=== PATIENT | female | born 1995 | race Caucasian/White ===

== ENCOUNTER 2024-05-29 10:29 | Emergency (ER) | payer OTHER, SELFPAY ==
[2024-05-29 10:35] VITALS: BP 150/77; PULSE 74; RESP 18; TEMP 36.9; O2SAT 100; BMI 20.6
--- NOTE | 2024-05-29 10:56 | ED.GENADULT ---
HPI - General Adult General Chief complaint: Flank Pain Stated complaint: Lower back pain since 1am, throwing up Time Seen by Provider: 05/29/24 10:56 History of Present Illness HPI narrative: Woke up with back pain and nausea around 1am this morning. Has had urinary frequency, with dysuria. Has been nauseous and vomiting. Was sent here from 28-year-old woman presenting to the emergency department after initially being seen in urgent care. We were contacted by them following initial evaluation. 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 Evaluation in urgent care shows normal white count and urinalysis most notable for ketones and negative test. Has not had any fever. No hematuria. No prior pain like this. Does not typically suffer from back pain. No particular food intolerance is and no family history of kidney stones or gallbladder disease that she is aware of. Seems to exacerbate a little bit with flexion of the right thigh. Per their conversation with urgent care provider, they are here with expectation of imaging. Related Data Previous Rx's ?Medication ?Instructions ?Recorded hydrocodone 5 mg-acetaminophen 325 1 - 2 tab PO Q4-6H PRN pain #12 05/29/24 mg tablet tabs ondansetron 4 mg disintegrating 4 mg PO Q4-6H PRN nausea and 05/29/24 tablet vomiting #10 tabs tamsulosin 0.4 mg capsule (Flomax) 0.4 mg PO DAILY #15 caps 05/29/24 Allergies Allergy/AdvReac Type Severity Reaction Status Date / Time No Known Drug Allergies Allergy Verified 05/29/24 10:39 Review of Systems Status of ROS: Reports: 6 or more systems reviewed and unremarkable except as noted in History and below PFSH [facility] Social History Do you use any of these nicotine containing products: None Second hand tobacco smoke exposure: No How often do you have a drink containing alcohol: never How often do you have six or more drinks on one occasion: Never AUDIT-C Alcohol total score: 0 Non-prescribed substance use: denies use service: No Exam Narrative: Exam Narrative: Pleasant. Calm. Appears mildly uncomfortable though not demonstrating. Breathing easily. Skin is warm and dry without apparent rash. She is well-perfused. No lower extremity edema. Lungs are clear. Heart is in a regular rate and rhythm. Abdomen is flat soft and nontender. Area of pain seems to be in the james spinal musculature of the upper lumbar low thoracic spine. Not clearly reproducible. No swellings here. No SI joint area pain. Const: Vital Signs, click to edit/add: Vital Signs - 24 hr 05/29/24 10:35 Temperature 98.4 F Pulse Rate [Right Pulse Oximeter] 74 Respiratory Rate 18 Blood Pressure [Ri ght Upper Arm] 150/77 H Pulse Oximetry 100 Oxygen Delivery Me thod Room Air Documenting provider has reviewed patient's vital signs: yes Course Vital Signs Vital signs: Initial Vital Signs Temperature 98.4 F 05/29/24 10:35 Temperature Source Temporal Artery Scan 05/29/24 10:35 Pulse Rate 74 05/29/24 10:35 Pulse Rhythm Regular 05/29/24 10:35 Respiratory Rate 18 05/29/24 10:35 Blood Pressure 150/77 H 05/29/24 10:35 Blood Pressure Mean 101 05/29/24 10:35 Blood Pressure Position Sitting 05/29/24 10:35 Pulse Oximetry 100 05/29/24 10:35 Oxygen Delivery Method Room Air 05/29/24 10:35 Vital Signs Temperature 98.4 F 05/29/24 10:35 Pulse Rate 74 05/29/24 10:35 Respiratory Rate 18 05/29/24 10:35 Blood Pressure 150/77 H 05/29/24 10:35 Pulse Oximetry 100 05/29/24 10:35 Oxygen Delivery Method Room Air 05/29/24 10:35 Temperature 98.4 F 05/29/24 10:35 Pulse Rate 74 05/29/24 10:35 Respiratory Rate 18 05/29/24 10:35 Blood Pressure 150/77 H 05/29/24 10:35 Pulse Oximetry 100 05/29/24 10:35 Oxygen Delivery Method Room Air 05/29/24 10:35 Medications Administered Medications: Discontinued Medications Generic Name Dose Route Start Last Admin Trade Name Freq PRN Reason Stop Dose Admin Sodium Chloride 1,000 mls @ 1,000 mls/hr 05/29/24 11:09 05/29/24 13:35 0.9 % Sodium Chloride 1000 Ml IV 05/29/24 12:08 Infused .Q1H ONE Infusion Ketorolac Tromethamine 30 mg 05/29/24 12:07 05/29/24 12:28 Ketorolac 30 Mg/Ml Inj IVP 05/29/24 12:08 30 mg ONCE ONE Administration Morphine Sulfate 4 mg 05/29/24 13:53 05/29/24 14:05 Morphine 4 Mg/Ml Inj IVP 05/29/24 13:54 4 mg ONCE ONE Administration Medical Decision Making MDM Narrative Medical decision making narrative: Unusual abrupt presentation for intra-abdominal/spinal abscess. She is not complaining of a headache to suggest meningitis. Possibly could be referred biliary colic. Unusual for appendicitis. Not area of pain that would associated with ovarian cyst rupture and regarding ectopic - head negative urine test today. Urinalysis without significant blood but with evidence of dehydration/metabolic stress. Abrupt onset could be cystitis/UTI or ureteral colic secondary to stone. Placing IV. Hydrating in anticipation of potential imaging. Checking labs for evidence of liver/biliary inflammation - this may direct imaging further. Initially she does not feel that she needs anything for pain or nausea. Basic and liver panel are unremarkable. Arranging for contrasted CT imaging of abdomen and pelvis probably given slim body habitus. Also she would like something for discomfort and of ordered ketorolac. On my review CT imaging does seem to show a low right small calcification See radiology over-read as below CT abdomen and pelvis acquired with 100 cc Omnipaque 350 IV contrast. COMPARISON: None. FINDINGS: Lower chest: Scattered atelectasis. Liver: Unremarkable. Normal in size and attenuation. No suspicious masses. Gallbladder and bile ducts: Unremarkable. No stones or inflammation. No biliary dilatation. Pancreas: Unremarkable. No mass or inflammation. Spleen: Unremarkable. Normal in size. No masses. Adrenal glands: Unremarkable. No nodules. Kidneys: Mild right hydroureteronephrosis secondary to punctate obstructing right UVJ stone. GI tract: Mild colonic stool burden. Normal in caliber. No sign of mass or inflammation. Normal appendix. Vasculature: Abdominal aorta is normal in caliber. Mesenteric arteries are patent. Lymph nodes: No lymphadenopathy. Peritoneum/Abdominal Wall: Unremarkable. No sign of mass or infiltration. No free air or significant free fluid. Pelvis: Trace free fluid in the pelvis. Bones: Unremarkable for age. IMPRESSION: Mild right hydroureteronephrosis secondary to punctate obstructing right UVJ stone. With escalation in pain given some IV morphine. Overall improved. Labs show good renal function See patient discharge plan for further discussion Medical Records Medical records reviewed: Yes I reviewed the patient's medical records Lab Data Lab results reviewed: Yes I reviewed the patient's lab results Labs: Lab Results 05/29/24 Range/Units 11:28 Sodium 137 (135-149) mmol/L Potassium 3.7 (3.6-5.1) mmol/L Chloride 104 (96-114) mmol/L Carbon Dioxide 22 (20-32) mmol/L Anion Gap 11 (7-15) mEq/L BUN 21 (5-24) mg/dL Creatinine 0.9 (0.5-1.5) mg/dL Estimated Creat Clear 81.89 Estimated GFR 89 ml/min Glucose 118 H (60-115) mg/dL Calcium 9.4 (8.4-10.6) mg/dL Total Bilirubin 1.4 (0.1-1.5) mg/dL Direct Bilirubin 0.2 (0.0-0.5) mg/dL AST 30 (12-35) U/L ALT 24 (4-35) U/L Alkaline Phosphatase 60 (40-150) U/L C-Reactive Protein < 0.5 L (0.5-1.0) mg/dL Total Protein 7.8 (6.0-8.3) g/dL Albumin 5.0 (3.3-5.0) g/dL Discharge Plan Discharge Clinical Impression: Right ureteral stone, Ureteral colic Patient Disposition: Home w/ Parent or Adult Condition: Improved Additional Instructions: Generally stay well-hydrated. Can take up to 600mg of Ibuprofen per dose or up to 850mg of acetaminophen per dose. Alternative to the ibuprofen is up to 375mg of naproxen 2 times daily. Remember that each tablet of [place] contains 325mg of acetaminophen. Take the Flomax daily until you are sure of stone passage; at least that it is in the bladder If not improved in 5 days would follow up for re-evaluation and possible reimaging. Be seen otherwise for fever, uncontrolled pain, intractable vomiting. Strain your urine over this next week as analysis of the stone can be helpful. Prescriptions: New tamsulosin [Flomax] 0.4 mg capsule 0.4 mg PO DAILY Qty: 15 0RF hydrocodone-acetaminophen 5-325 mg tablet 1 - 2 tab PO Q4-6H PRN (Reason: pain) Qty: 12 0RF ondansetron 4 mg tablet,disintegrating 4 mg PO Q4-6H PRN (Reason: nausea and vomiting) Qty: 10 0RF Follow Up/Referrals: Provider,Not a Local [Primary Care Provider] - Stand Alone Forms: MyHealth Info Instructions
[2024-05-29] MEDS: 0.9 % SODIUM CHLORIDE 1000 ml 1,000 ML IV (11:29)
[2024-05-29 11:45] LABS: Chloride* 104 mmol/L (96-114)
[2024-05-29 11:46] LABS: Potassium* 3.7 mmol/L (3.6-5.1); Sodium* 137 mmol/L (135-149)
[2024-05-29 11:49] LABS: Alkaline Phosphatase* 60 U/L (40-150); Anion Gap 11 mEq/L (7-15); Aspartate Amino Transferase* 30 U/L (12-35); Bilirubin Direct* 0.2 mg/dL (0.0-0.5); Bilirubin Total* 1.4 mg/dL (0.1-1.5); Blood Urea Nitrogen* 21 mg/dL (5-24); Carbon Dioxide* 22 mmol/L (20-32); Creatinine* 0.9 mg/dL (0.5-1.5); Est. Creatinine Clearance* 81.89; Estimated Glomerular Filt Rate 89 ml/min; Glucose* 118 mg/dL (60-115); Total Protein* 7.8 g/dL (6.0-8.3)
[2024-05-29 11:50] LABS: Alanine Aminotransferase* 24 U/L (4-35); Calcium* 9.4 mg/dL (8.4-10.6)
[2024-05-29 11:57] LABS: C Reactive Protein* < 0.5 mg/dL (0.5-1.0)
--- NOTE | 2024-05-29 12:03 | CRLHL7_ITS ---
For Patients: As a result of the Century Cures Act, medical imaging exams and procedure reports are released immediately into your electronic medical record. You may view this report before your referring provider. If you have questions, please contact your health care provider. INDICATION: Right flank pain. TECHNIQUE: CT abdomen and pelvis acquired with 100 cc Omnipaque 350 IV contrast. COMPARISON: None. FINDINGS: Lower chest: Scattered atelectasis. Liver: Unremarkable. Normal in size and attenuation. No suspicious masses. Gallbladder and bile ducts: Unremarkable. No stones or inflammation. No biliary dilatation. Pancreas: Unremarkable. No mass or inflammation. Spleen: Unremarkable. Normal in size. No masses. Adrenal glands: Unremarkable. No nodules. Kidneys: Mild right hydroureteronephrosis secondary to punctate obstructing right UVJ stone. GI tract: Mild colonic stool burden. Normal in caliber. No sign of mass or inflammation. Normal appendix. Vasculature: Abdominal aorta is normal in caliber. Mesenteric arteries are patent. Lymph nodes: No lymphadenopathy. Peritoneum/Abdominal Wall: Unremarkable. No sign of mass or infiltration. No free air or significant free fluid. Pelvis: Trace free fluid in the pelvis. Bones: Unremarkable for age. IMPRESSION: Mild right hydroureteronephrosis secondary to punctate obstructing right UVJ stone. Please note that all CT scans at this facility use dose modulation, iterative reconstruction, and/or weight-based dosing when appropriate to reduce radiation dose to as low as reasonably achievable. Dictated by Ray Hernandez MD @ 05/29/2024 1:28:40 PM (Electronically Signed)
[2024-05-29] MEDS: KETOROLAC 30 MG/ML inj IVP (12:28)
[2024-05-29] MEDS: MORPHINE 4 MG/ML INJ IVP (14:05)
== END 2024-05-29 14:39 | disposition home or self-care (01) ==
PROVIDERS: Emergency Provider Family Medicine
DX: N20.1 Calculus of ureter (principal)
CPT/HCPCS: 36415; 74177; 80048; 80076; 86140; 96374; 96375; 99284; J1885; J2270; J7030; Q9967